=== PATIENT | male | born 1980 | race Caucasian/White ===

== ENCOUNTER 2021-05-08 00:06 | Observation (INO) ==
[2021-05-08] MEDS ORDERED: Isovue-370 500 ML BOTTLE IVP ONE (00:49)
[2021-05-08 01:41] LABS: Basophils % 1.1 %; Eosinophils % 0.3 %; Hematocrit 45.9 % (37.5-50.1); Hemoglobin 16.2 g/dL (12.9-16.9); Immature Granulocytes % 0.3 % (0-4); Lymphocytes # 1.7 K/mcL (0.6-4.6); Lymphocytes % 47.3 %; Mean Corpuscular HGB Conc 35.3 g/dL (31.6-35.5); Mean Corpuscular Hemoglobin 34.8 pg (28.0-33.3); Mean Corpuscular Volume 98.7 fL (83.0-100.0); Mean Platelet Volume 9.6 fL (9.4-12.4); Monocytes # 0.4 K/mcL (0.0-1.3); Monocytes % 11.2 %; Neutrophils # 1.4 K/mcL (1.6-8.9); Platelet Count 141 K/mcL (140-400); Red Blood Count 4.65 M/mcL (4.19-5.50); Red Cell Distribution Width 12.8 % (11.5-14.5); Segmented Neutrophils % 39.8 %; White Blood Count 3.6 K/mcL (4.3-11.1)
[2021-05-08 01:49] LABS: INR 0.9; Prothrombin Time 10.4 Seconds (9.4-12.1)
[2021-05-08 01:52] LABS: Activated Partial Thrombo Time 31.3 Seconds (26.0-36.0)
[2021-05-08 02:02] LABS: Acetaminophen < 10 mcg/mL (10-20); Alanine Aminotransferase 252 Units/L (7-52); Albumin 4.3 g/dL (3.5-5.7); Albumin/Globulin Ratio 1.4 (1.1-2.2); Alkaline Phosphatase 128 Units/L (34-104); Aspartate Amino Transferase 345 Units/L (13-39); BUN/Creatinine Ratio 8 (6-26); Bilirubin,Direct 0.2 mg/dL (0.0-0.2); Bilirubin,Indirect 0.4 mg/dL (0.0-1.0); Bilirubin,Total 0.6 mg/dL (0.3-1.0); Blood Urea Nitrogen 7 mg/dL (6-20); Calcium 8.8 mg/dL (8.6-10.3); Carbon Dioxide 25 mEq/L (23-29); Chloride 102 mEq/L (98-107); Ethanol 445 mg/dL (Less than 10); Glucose 120 mg/dL (70-105); Osmolality,Calculated 291 (280-300); Potassium 3.1 mEq/L (3.5-5.1); Sodium 141 mEq/L (136-145); Total Protein 7.3 g/dL (6.4-8.9); Troponin I < 0.03 ng/mL (< 0.04); eGFR For African Americans > 60 (> 60); eGFR For Non-African Americans > 60 (> 60)
[2021-05-08] MEDS ORDERED: Ringers Solution, Lactated 1,000 ML IVC ONE (02:08)
[2021-05-08 02:56] LABS: Amphetamine Screen,Urine Positive ng/mL (Cutoff=1000); Barbiturate Screen,Urine Negative ng/mL (Cutoff=200); Benzodiazepines Screen,Urine Negative ng/mL (Cutoff=200); Cannabinoid Screen,Urine Negative ng/mL (Cutoff = 50); Cocaine Screen,Urine Negative ng/mL (Cutoff= 300); Opiate Screen,Urine Negative ng/mL (Cutoff=300); Phencyclidine Screen,Urine Negative ng/mL (Cutoff=25)
[2021-05-08 02:59] LABS: Bilirubin,Urine Negative (Negative); Blood,Urine Negative (Negative); Clarity,Urine Clear (Clear); Color,Urine Light-Yellow (Yellow); Glucose,Urine (UA) Normal (Normal); Ketones,Urine Negative (Negative); Leukocyte Esterase,Urine Negative (Negative); Mucus,Urine Few per lpf (None-Few); Nitrite,Urine Negative (Negative); PH,Urine 6.5 pH Units (5.0-8.0); Protein,Urine 30 mg/dL (Neg-Trace); Specific Gravity,Urine 1.006 (1.010-1.025); Urobilinogen,Urine Normal (Normal); WBC,Urine 0-3 per hpf (0-3)
[2021-05-08] MEDS ORDERED: Ondansetron 4 MG/2 ML VIAL IVP PRN (03:32)
[2021-05-08] MEDS ORDERED: Naloxone 0.4 MG/ML INJ IVP PRN (03:32)
[2021-05-08] MEDS ORDERED: *HR* LORazepam 2 MG/ML VIAL IVP PRN ×2 (03:40→10:56)
[2021-05-08] MEDS ORDERED: Folic Acid 1 MG in 0.9 % Sodium Chloride 50 ML IVPB SCH (04:00)
[2021-05-08] MEDS ORDERED: Folic Acid 1 MG in 0.9 % Sodium Chloride 50 ML IVPB ONE (04:00)
[2021-05-08] MEDS ORDERED: Thiamine (B-1) 200 MG in 0.9 % Sodium Chloride 50 ML IVPB ONE (04:00)
[2021-05-08] MEDS ORDERED: Thiamine (B-1) 200 MG in 0.9 % Sodium Chloride 50 ML IVPB SCH (04:00)
[2021-05-08 04:58] LABS: Influenza A PCR Negative (Negative); Influenza B PCR Negative (Negative); Resp. Syncytial Virus PCR Negative (Negative); SARS-CoV-2 by PCR (In House) Negative (Negative)
[2021-05-08] MEDS: 0.9 % Sodium Chloride 1,000 ML IVC SCH ×2 (05:08→09:26)
[2021-05-08] MEDS: *HR* LORazepam 2 MG/ML VIAL IVP PRN ×2 (06:23→10:53)
[2021-05-08 06:30] LABS: Basophils # 0.1 K/mcL (0.0-0.2); Basophils % 1.6 %; Eosinophils % 0.3 %; Hematocrit 44.8 % (37.5-50.1); Hemoglobin 15.6 g/dL (12.9-16.9); Immature Granulocytes % 0.3 % (0-4); Lymphocytes # 1.6 K/mcL (0.6-4.6); Lymphocytes % 52.9 %; Mean Corpuscular HGB Conc 34.8 g/dL (31.6-35.5); Mean Corpuscular Hemoglobin 34.4 pg (28.0-33.3); Mean Corpuscular Volume 98.9 fL (83.0-100.0); Monocytes # 0.3 K/mcL (0.0-1.3); Monocytes % 11.1 %; Platelet Count 128 K/mcL (140-400); Red Blood Count 4.53 M/mcL (4.19-5.50); Red Cell Distribution Width 12.9 % (11.5-14.5); Segmented Neutrophils % 33.8 %; White Blood Count 3.1 K/mcL (4.3-11.1)
[2021-05-08 06:37] LABS: INR 0.9; Prothrombin Time 10.5 Seconds (9.4-12.1)
[2021-05-08 06:49] LABS: BUN/Creatinine Ratio 8 (6-26); Blood Urea Nitrogen 6 mg/dL (6-20); Calcium 8.6 mg/dL (8.6-10.3); Carbon Dioxide 26 mEq/L (23-29); Chloride 103 mEq/L (98-107); Glucose 108 mg/dL (70-105); Magnesium 1.9 mg/dL (1.6-2.6); Osmolality,Calculated 288 (280-300); Phosphorous 4.2 mg/dL (2.7-4.5); Potassium 3.4 mEq/L (3.5-5.1); Sodium 140 mEq/L (136-145); eGFR For African Americans > 60 (> 60); eGFR For Non-African Americans > 60 (> 60)
[2021-05-08 07:04] LABS: Thyroid Stimulating Hormone 0.966 mcIU/mL (0.340-5.600)
[2021-05-08 07:13] LABS: Hepatitis B Surface Antigen Nonreactive (Nonreactive)
[2021-05-08 07:44] LABS: Hepatitis A Antibody IgM Nonreactive (Nonreactive)
[2021-05-08 09:20] LABS: Hepatitis B Core IgM Nonreactive (Nonreactive)
[2021-05-08 09:51] LABS: Hepatitis C Virus Antibody Reactive (Nonreactive)
[2021-05-08] MEDS ORDERED: 0.9 % Sodium Chloride 1,000 ML IVC SCH (10:19)
[2021-05-08 10:45] VITALS: BP 155/78; PULSE 109; TEMP 98.1; O2SAT 97
[2021-05-08] MEDS ORDERED: Thiamine (B-1) 100 MG, Folic Acid 1 MG, MVI, adult with vitamin K 10 ML in 0.9 % Sodi... IVPB SCH (18:00)
[2021-05-09] MEDS ORDERED: Thiamine (B-1) 200 MG in 0.9 % Sodium Chloride 50 ML IVPB SCH (09:00)
[2021-05-09] MEDS ORDERED: Folic Acid 1 MG in 0.9 % Sodium Chloride 50 ML IVPB SCH (09:00)
== END 2021-05-08 15:16 | disposition home or self-care (01) ==
LOC: EMEROOARM 00:06 → 2ANU 00:06
PROVIDERS: ADMIT Student in an Organized Health Care Education/Training Program; ATTEND Student in an Organized Health Care Education/Training Program

== ENCOUNTER 2021-12-16 17:08 | Inpatient (IN) ==
[2021-12-16] MEDS ORDERED: 0.9 % Sodium Chloride 1,000 ML IVC ONE (19:26)
[2021-12-16] MEDS ORDERED: *HR* LORazepam 2 MG/ML VIAL IVP ONE (19:26)
[2021-12-16 20:24] LABS: Basophils # 0.1 K/mcL (0.0-0.2); Basophils % 0.9 %; Eosinophils % 0.7 %; Hematocrit 47.7 % (37.5-50.1); Hemoglobin 16.7 g/dL (12.9-16.9); Immature Granulocytes % 0.5 % (0-4); Lymphocytes # 1.1 K/mcL (0.6-4.6); Lymphocytes % 20.4 %; Mean Corpuscular Hemoglobin 36.5 pg (28.0-33.3); Mean Corpuscular Volume 104.4 fL (83.0-100.0); Mean Platelet Volume 9.4 fL (9.4-12.4); Monocytes # 0.5 K/mcL (0.0-1.3); Monocytes % 8.2 %; Neutrophils # 3.8 K/mcL (1.6-8.9); Platelet Count 140 K/mcL (140-400); Red Blood Count 4.57 M/mcL (4.19-5.50); Red Cell Distribution Width 12.3 % (11.5-14.5); Segmented Neutrophils % 69.3 %; White Blood Count 5.5 K/mcL (4.3-11.1)
[2021-12-16 20:28] LABS: Albumin 4.7 g/dL (3.5-5.7); Albumin/Globulin Ratio 1.3 (1.1-2.2); Bilirubin,Total 1.3 mg/dL (0.3-1.0); Calcium 9.7 mg/dL (8.6-10.3); Globulin 3.6 g/dL (2.4-3.5); Magnesium 2.3 mg/dL (1.6-2.6); Potassium 4.5 mEq/L (3.5-5.1); Total Protein 8.3 g/dL (6.4-8.9)
[2021-12-16 20:48] LABS: Prothrombin Time 11.4 Seconds (9.4-12.1)
[2021-12-16] MEDS ORDERED: diazePAM 10 MG TABLET PO PRN (22:29)
[2021-12-16] MEDS ORDERED: Naloxone 0.4 MG/ML INJ IVP PRN (22:29)
[2021-12-16] MEDS ORDERED: diazePAM 5 MG TABLET PO PRN (22:29)
[2021-12-16] MEDS: diazePAM 5 MG TABLET PO PRN ×2 (23:06→23:57)
[2021-12-16] MEDS: Ringers Solution, Lactated 1,000 ML IVC SCH (23:06)
[2021-12-16] MEDS: Melatonin 3 MG TABLET PO PRN (23:06)
[2021-12-16] MEDS: Acetaminophen 325 MG TABLET PO PRN (23:06)
[2021-12-17] MEDS: *HR* Promethazine 25 MG/ML VIAL IM PRN ×3 (02:31→23:43)
[2021-12-17 03:03] LABS: Amphetamine Screen,Urine Positive ng/mL (Cutoff=1000); Barbiturate Screen,Urine Negative ng/mL (Cutoff=200); Benzodiazepines Screen,Urine Negative ng/mL (Cutoff=200); Cannabinoid Screen,Urine Negative ng/mL (Cutoff = 50); Cocaine Screen,Urine Negative ng/mL (Cutoff= 300); Opiate Screen,Urine Negative ng/mL (Cutoff=300); Phencyclidine Screen,Urine Negative ng/mL (Cutoff=25)
[2021-12-17] MEDS: diazePAM 5 MG TABLET PO PRN ×3 (03:24→08:35)
[2021-12-17] MEDS: Acetaminophen 325 MG TABLET PO PRN (04:23)
[2021-12-17] MEDS: *HR* Enoxaparin 40 MG/0.4 ML SYRINGE SQ SCH (05:19)
[2021-12-17] MEDS: Ringers Solution, Lactated 1,000 ML IVC SCH (05:20)
[2021-12-17] MEDS: Folic Acid 1 MG TABLET PO SCH (08:34)
[2021-12-17] MEDS: Thiamine (B-1) 100 MG TABLET PO SCH (08:35)
[2021-12-17] MEDS: amLODIPine 5 MG TABLET PO SCH (08:35)
[2021-12-17] MEDS: Vitamin B Complex/Vit C/Vit E 1 EACH TABLET PO SCH (08:35)
[2021-12-17] MEDS: Nicotine 21 MG PATCH.TD24 TD SCH (08:35)
[2021-12-17] MEDS ORDERED: ARIPiprazole 10 MG TABLET PO SCH (09:00)
[2021-12-17] MEDS ORDERED: *HR* LORazepam 2 MG/ML VIAL IVP ONE (09:13)
[2021-12-17] MEDS ORDERED: *HR* LORazepam 2 MG/ML VIAL IVP PRN (10:33)
[2021-12-17] MEDS ORDERED: 0.9 % Sodium Chloride 1,000 ML IVC SCH (14:30)
[2021-12-17 15:57] LABS: Red Cell Distribution Width 11.9 % (11.5-14.5); White Blood Count 3.6 K/mcL (4.3-11.1)
[2021-12-17 15:59] LABS: Basophils # 0.1 K/mcL (0.0-0.2); Basophils % 1.4 %; Eosinophils % 0.3 %; Hemoglobin 15.2 g/dL (12.9-16.9); Immature Granulocytes % 0.8 % (0-4); Immature Platelets 3.8 % (1.1-6.1); Lymphocytes % 26.2 %; Mean Corpuscular HGB Conc 34.5 g/dL (31.6-35.5); Mean Corpuscular Volume 107.1 fL (83.0-100.0); Mean Platelet Volume 10.1 fL (9.4-12.4); Monocytes # 0.5 K/mcL (0.0-1.3); Monocytes % 13.8 %; Neutrophils # 2.1 K/mcL (1.6-8.9); Red Blood Count 4.11 M/mcL (4.19-5.50); Segmented Neutrophils % 57.5 %
[2021-12-17 16:27] LABS: Lymphocytes # 0.9 K/mcL (0.6-4.6); Platelet Count 78 K/mcL (140-400)
[2021-12-17 16:29] LABS: Reactive Lymphocytes Present (Not Present)
[2021-12-17 16:49] LABS: Alanine Aminotransferase 94 Units/L (7-52); Albumin 3.9 g/dL (3.5-5.7); Albumin/Globulin Ratio 1.4 (1.1-2.2); Alkaline Phosphatase 87 Units/L (34-104); Aspartate Amino Transferase 132 Units/L (13-39); BUN/Creatinine Ratio 16 (6-26); Bilirubin,Direct 0.7 mg/dL (0.0-0.2); Bilirubin,Indirect 1.5 mg/dL (0.0-1.0); Bilirubin,Total 2.2 mg/dL (0.3-1.0); Blood Urea Nitrogen 13 mg/dL (6-20); Calcium 9.4 mg/dL (8.6-10.3); Carbon Dioxide 20 mEq/L (23-29); Chloride 99 mEq/L (98-107); Cholesterol 250 mg/dL (< 200); Ethanol < 10 mg/dL (Less than 10); Globulin 2.8 g/dL (2.4-3.5); Glucose 91 mg/dL (70-105); HDL Cholesterol 127 mg/dL (40-59); LDL Cholesterol,Calculated 98 mg/dL (< 100); Magnesium 2.1 mg/dL (1.6-2.6); Osmolality,Calculated 282 (280-300); Phosphorous 1.7 mg/dL (2.7-4.5); Potassium 4.2 mEq/L (3.5-5.1); Salicylate < 2.5 mg/dL (15.0-30.0); Sodium 136 mEq/L (136-145); Total Protein 6.7 g/dL (6.4-8.9); Triglycerides 126 mg/dL (< 150)
[2021-12-17] MEDS: *HR* LORazepam 2 MG/ML VIAL IVP PRN ×2 (17:54→23:36)
[2021-12-17 18:01] LABS: Hepatitis B Surface Antigen Nonreactive (Nonreactive)
[2021-12-18] MEDS: Melatonin 3 MG TABLET PO PRN (01:57)
[2021-12-18] MEDS: *HR* LORazepam 2 MG/ML VIAL IVP PRN ×6 (03:39→20:00)
[2021-12-18] MEDS: *HR* Promethazine 25 MG/ML VIAL IM PRN (03:50)
[2021-12-18] MEDS: *HR* Enoxaparin 40 MG/0.4 ML SYRINGE SQ SCH (04:48)
[2021-12-18] MEDS ORDERED: Haloperidol Lactate 5 MG/ML VIAL IVP ONE (06:11)
[2021-12-18] MEDS: Thiamine (B-1) 100 MG TABLET PO SCH (08:07)
[2021-12-18] MEDS: Folic Acid 1 MG TABLET PO SCH (08:07)
[2021-12-18] MEDS: amLODIPine 5 MG TABLET PO SCH (08:07)
[2021-12-18] MEDS: Vitamin B Complex/Vit C/Vit E 1 EACH TABLET PO SCH (08:07)
[2021-12-18] MEDS: Nicotine 21 MG PATCH.TD24 TD SCH ×2 (08:07→17:41)
[2021-12-18 09:32] LABS: Mean Corpuscular HGB Conc 35.6 g/dL (31.6-35.5); Mean Platelet Volume 10.2 fL (9.4-12.4)
[2021-12-18 09:34] LABS: Basophils % 1.1 %; Eosinophils % 0.4 %; Hematocrit 43.5 % (37.5-50.1); Hemoglobin 15.5 g/dL (12.9-16.9); Immature Granulocytes % 0.7 % (0-4); Immature Platelets 5.2 % (1.1-6.1); Lymphocytes # 0.8 K/mcL (0.6-4.6); Lymphocytes % 28.6 %; Mean Corpuscular Hemoglobin 36.7 pg (28.0-33.3); Mean Corpuscular Volume 103.1 fL (83.0-100.0); Monocytes # 0.3 K/mcL (0.0-1.3); Monocytes % 11.7 %; Neutrophils # 1.6 K/mcL (1.6-8.9); Red Blood Count 4.22 M/mcL (4.19-5.50); Red Cell Distribution Width 11.8 % (11.5-14.5); Segmented Neutrophils % 57.5 %; White Blood Count 2.7 K/mcL (4.3-11.1)
[2021-12-18 09:50] LABS: Platelet Count 78 K/mcL (140-400)
[2021-12-18 09:52] LABS: Platelet Estimate Decreased (Normal)
[2021-12-18 10:08] LABS: Alanine Aminotransferase 96 Units/L (7-52); Albumin 4.3 g/dL (3.5-5.7); Albumin/Globulin Ratio 1.4 (1.1-2.2); Alkaline Phosphatase 88 Units/L (34-104); Aspartate Amino Transferase 151 Units/L (13-39); BUN/Creatinine Ratio 13 (6-26); Blood Urea Nitrogen 10 mg/dL (6-20); Carbon Dioxide 24 mEq/L (23-29); Chloride 99 mEq/L (98-107); Glucose 100 mg/dL (70-105); Lipase 256 Units/L (11-82); Osmolality,Calculated 283 (280-300); Potassium 3.8 mEq/L (3.5-5.1); Sodium 137 mEq/L (136-145); Total Protein 7.3 g/dL (6.4-8.9)
[2021-12-18 12:06] LABS: Hepatitis B Core IgM Nonreactive (Nonreactive)
[2021-12-18 12:07] LABS: Hepatitis A Antibody IgM Nonreactive (Nonreactive)
[2021-12-18] MEDS ORDERED: Nicotine 2 MG GUM BC PRN (13:28)
[2021-12-18 15:27] LABS: Hepatitis C Virus Antibody Reactive (Nonreactive)
[2021-12-18] MEDS: Dexmedetomidine HCl 400 MCG/100 ML MLS IVC SCH ×2 (16:46→21:27)
[2021-12-19] MEDS: Dexmedetomidine HCl 400 MCG/100 ML MLS IVC SCH ×6 (01:00→23:55)
[2021-12-19] MEDS: *HR* LORazepam 2 MG/ML VIAL IVP PRN ×5 (03:37→22:08)
[2021-12-19] MEDS: *HR* Enoxaparin 40 MG/0.4 ML SYRINGE SQ SCH (06:38)
[2021-12-19] MEDS: Nicotine 21 MG PATCH.TD24 TD SCH (08:39)
[2021-12-19] MEDS: amLODIPine 5 MG TABLET PO SCH (08:40)
[2021-12-19] MEDS: Thiamine (B-1) 100 MG TABLET PO SCH (08:40)
[2021-12-19] MEDS: Vitamin B Complex/Vit C/Vit E 1 EACH TABLET PO SCH (08:40)
[2021-12-19] MEDS: Folic Acid 1 MG TABLET PO SCH (08:40)
[2021-12-19] MEDS: Acetaminophen 325 MG TABLET PO PRN (16:46)
[2021-12-20] MEDS: *HR* LORazepam 2 MG/ML VIAL IVP PRN ×5 (00:51→20:26)
[2021-12-20] MEDS: Dexmedetomidine HCl 400 MCG/100 ML MLS IVC SCH ×4 (03:31→16:30)
[2021-12-20] MEDS: *HR* Enoxaparin 40 MG/0.4 ML SYRINGE SQ SCH (06:23)
[2021-12-20] MEDS: Nicotine 21 MG PATCH.TD24 TD SCH (08:38)
[2021-12-20] MEDS: amLODIPine 5 MG TABLET PO SCH (08:39)
[2021-12-20] MEDS: Thiamine (B-1) 100 MG TABLET PO SCH (08:39)
[2021-12-20] MEDS: Folic Acid 1 MG TABLET PO SCH (08:39)
[2021-12-20] MEDS: Vitamin B Complex/Vit C/Vit E 1 EACH TABLET PO SCH (08:39)
[2021-12-20] MEDS: Acetaminophen 325 MG TABLET PO PRN ×2 (13:06→22:57)
[2021-12-20] MEDS ORDERED: amLODIPine 5 MG TABLET PO ONE (19:09)
[2021-12-20] MEDS: Melatonin 3 MG TABLET PO PRN (22:57)
[2021-12-21] MEDS: Dexmedetomidine HCl 400 MCG/100 ML MLS IVC SCH ×2 (01:47→15:19)
[2021-12-21 02:01] LABS: Basophils % 0.8 %; Eosinophils # 0.1 K/mcL (0.0-0.6); Eosinophils % 3.1 %; Hematocrit 43.2 % (37.5-50.1); Hemoglobin 15.3 g/dL (12.9-16.9); Immature Granulocytes % 0.5 % (0-4); Lymphocytes # 0.9 K/mcL (0.6-4.6); Lymphocytes % 22.8 %; Mean Corpuscular HGB Conc 35.4 g/dL (31.6-35.5); Mean Corpuscular Hemoglobin 36.1 pg (28.0-33.3); Mean Corpuscular Volume 101.9 fL (83.0-100.0); Mean Platelet Volume 10.1 fL (9.4-12.4); Monocytes # 0.5 K/mcL (0.0-1.3); Monocytes % 13.1 %; Neutrophils # 2.3 K/mcL (1.6-8.9); Platelet Count 111 K/mcL (140-400); Red Blood Count 4.24 M/mcL (4.19-5.50); Red Cell Distribution Width 11.7 % (11.5-14.5); Segmented Neutrophils % 59.7 %; White Blood Count 3.8 K/mcL (4.3-11.1)
[2021-12-21 02:18] LABS: BUN/Creatinine Ratio 13 (6-26); Blood Urea Nitrogen 10 mg/dL (6-20); Calcium 9.7 mg/dL (8.6-10.3); Carbon Dioxide 22 mEq/L (23-29); Chloride 105 mEq/L (98-107); Glucose 140 mg/dL (70-105); Magnesium 1.7 mg/dL (1.6-2.6); Osmolality,Calculated 285 (280-300); Phosphorous 3.6 mg/dL (2.7-4.5); Potassium 3.5 mEq/L (3.5-5.1); Sodium 137 mEq/L (136-145)
[2021-12-21] MEDS: *HR* LORazepam 2 MG/ML VIAL IVP PRN ×5 (02:30→17:35)
[2021-12-21] MEDS: *HR* Enoxaparin 40 MG/0.4 ML SYRINGE SQ SCH (05:41)
[2021-12-21] MEDS: Nicotine 21 MG PATCH.TD24 TD SCH (08:54)
[2021-12-21] MEDS: amLODIPine 5 MG TABLET PO SCH (08:55)
[2021-12-21] MEDS: Vitamin B Complex/Vit C/Vit E 1 EACH TABLET PO SCH (08:55)
[2021-12-21] MEDS: Folic Acid 1 MG TABLET PO SCH (08:55)
[2021-12-21] MEDS: Thiamine (B-1) 100 MG TABLET PO SCH (08:55)
[2021-12-21] MEDS ORDERED: *HR* OxyCODONE/APAP 5/325 TABLET PO ONE ×2 (09:45→20:05)
[2021-12-21] MEDS: Magnesium Oxide 400 MG TABLET PO SCH (12:36)
[2021-12-21] MEDS: Melatonin 3 MG TABLET PO PRN (19:48)
[2021-12-21] MEDS: traZODone 50 MG TABLET PO SCH (19:48)
[2021-12-22] MEDS: Ketorolac 30 MG/ML VIAL IVP PRN ×2 (02:09→15:18)
[2021-12-22] MEDS: Dexmedetomidine HCl 400 MCG/100 ML MLS IVC SCH ×2 (02:31→23:25)
[2021-12-22 05:08] LABS: Basophils % 0.8 %; Eosinophils # 0.2 K/mcL (0.0-0.6); Eosinophils % 3.9 %; Hematocrit 43.4 % (37.5-50.1); Hemoglobin 15.4 g/dL (12.9-16.9); Immature Granulocytes % 0.3 % (0-4); Lymphocytes # 1.1 K/mcL (0.6-4.6); Lymphocytes % 27.1 %; Mean Corpuscular HGB Conc 35.5 g/dL (31.6-35.5); Mean Corpuscular Hemoglobin 36.3 pg (28.0-33.3); Mean Corpuscular Volume 102.4 fL (83.0-100.0); Mean Platelet Volume 9.9 fL (9.4-12.4); Monocytes # 0.7 K/mcL (0.0-1.3); Monocytes % 16.8 %; Platelet Count 144 K/mcL (140-400); Red Blood Count 4.24 M/mcL (4.19-5.50); Red Cell Distribution Width 11.9 % (11.5-14.5); Segmented Neutrophils % 51.1 %; White Blood Count 3.9 K/mcL (4.3-11.1)
[2021-12-22] MEDS: *HR* Enoxaparin 40 MG/0.4 ML SYRINGE SQ SCH (05:12)
[2021-12-22] MEDS: *HR* Promethazine 25 MG/ML VIAL IM PRN (05:13)
[2021-12-22 05:23] LABS: Alanine Aminotransferase 93 Units/L (7-52); Albumin 3.8 g/dL (3.5-5.7); Albumin/Globulin Ratio 1.2 (1.1-2.2); Alkaline Phosphatase 68 Units/L (34-104); Aspartate Amino Transferase 83 Units/L (13-39); BUN/Creatinine Ratio 13 (6-26); Bilirubin,Direct 0.2 mg/dL (0.0-0.2); Bilirubin,Indirect 0.6 mg/dL (0.0-1.0); Bilirubin,Total 0.8 mg/dL (0.3-1.0); Blood Urea Nitrogen 11 mg/dL (6-20); Calcium 9.7 mg/dL (8.6-10.3); Carbon Dioxide 24 mEq/L (23-29); Chloride 105 mEq/L (98-107); Globulin 3.1 g/dL (2.4-3.5); Glucose 122 mg/dL (70-105); Osmolality,Calculated 287 (280-300); Potassium 3.5 mEq/L (3.5-5.1); Sodium 138 mEq/L (136-145); Total Protein 6.9 g/dL (6.4-8.9)
[2021-12-22] MEDS: Nicotine 21 MG PATCH.TD24 TD SCH (08:18)
[2021-12-22] MEDS: Folic Acid 1 MG TABLET PO SCH (08:18)
[2021-12-22] MEDS: amLODIPine 5 MG TABLET PO SCH (08:19)
[2021-12-22] MEDS: Thiamine (B-1) 100 MG TABLET PO SCH (08:19)
[2021-12-22] MEDS: Vitamin B Complex/Vit C/Vit E 1 EACH TABLET PO SCH (08:19)
[2021-12-22] MEDS: *HR* LORazepam 2 MG/ML VIAL IVP PRN ×4 (08:19→23:25)
[2021-12-22] MEDS: Magnesium Oxide 400 MG TABLET PO SCH (08:19)
[2021-12-22] MEDS: *HR* OxyCODONE/APAP 5/325 TABLET PO PRN (11:12)
[2021-12-22 17:51] LABS: HCV Quant Log NOT DETECTED log IU/mL
[2021-12-22] MEDS: traZODone 50 MG TABLET PO SCH (21:23)
[2021-12-23] MEDS: *HR* Promethazine 25 MG/ML VIAL IM PRN (00:59)
[2021-12-23] MEDS: *HR* Enoxaparin 40 MG/0.4 ML SYRINGE SQ SCH (06:48)
[2021-12-23] MEDS: Dexmedetomidine HCl 400 MCG/100 ML MLS IVC SCH (08:12)
[2021-12-23] MEDS: Magnesium Oxide 400 MG TABLET PO SCH (08:18)
[2021-12-23] MEDS: amLODIPine 5 MG TABLET PO SCH (08:18)
[2021-12-23] MEDS: Vitamin B Complex/Vit C/Vit E 1 EACH TABLET PO SCH (08:18)
[2021-12-23] MEDS: Thiamine (B-1) 100 MG TABLET PO SCH (08:18)
[2021-12-23] MEDS: Nicotine 21 MG PATCH.TD24 TD SCH (08:19)
[2021-12-23] MEDS: Folic Acid 1 MG TABLET PO SCH (08:19)
[2021-12-23 08:32] LABS: HCV Quant Interpretation NOT DETECTED (Not Detected)
[2021-12-23] MEDS: Ketorolac 30 MG/ML VIAL IVP PRN (08:36)
[2021-12-23 09:35] LABS: Hematocrit 42.2 % (37.5-50.1); Hemoglobin 14.9 g/dL (12.9-16.9); Mean Corpuscular HGB Conc 35.3 g/dL (31.6-35.5); Mean Corpuscular Hemoglobin 36.2 pg (28.0-33.3); Mean Corpuscular Volume 102.4 fL (83.0-100.0); Mean Platelet Volume 9.8 fL (9.4-12.4); Platelet Count 164 K/mcL (140-400); Red Blood Count 4.12 M/mcL (4.19-5.50); Red Cell Distribution Width 11.8 % (11.5-14.5); White Blood Count 3.8 K/mcL (4.3-11.1)
[2021-12-23 09:54] LABS: BUN/Creatinine Ratio 13 (6-26); Blood Urea Nitrogen 11 mg/dL (6-20); Calcium 9.5 mg/dL (8.6-10.3); Carbon Dioxide 22 mEq/L (23-29); Chloride 107 mEq/L (98-107); Glucose 124 mg/dL (70-105); Magnesium 1.8 mg/dL (1.6-2.6); Osmolality,Calculated 287 (280-300); Phosphorous 4.2 mg/dL (2.7-4.5); Potassium 3.5 mEq/L (3.5-5.1); Sodium 138 mEq/L (136-145)
[2021-12-23 10:18] LABS: Eosinophils # 0.2 K/mcL (0.0-0.6); Lymphocytes # 1.4 K/mcL (0.6-4.6); Monocytes # 0.4 K/mcL (0.0-1.3); Neutrophils # 1.9 K/mcL (1.6-8.9); Platelet Estimate Normal (Normal)
[2021-12-23 11:25] VITALS: TEMP 97.4; O2SAT 97
[2021-12-23] MEDS: *HR* OxyCODONE/APAP 5/325 TABLET PO PRN (11:27)
[2021-12-23 13:44] VITALS: BP 144/107; PULSE 122
== END 2021-12-23 13:53 | disposition left against medical advice (07) | DRG 770 ==
LOC: SUATTDRO → 3BNU 17:08 → EMEROOARM 17:08 → SUATTDRO 21:21 → 3BNU 22:38 → 2NNU 12-18 16:37 → SUATTDRO 12-18 17:01
PROVIDERS: ADMIT Internal Medicine; ATTEND Internal Medicine